=== PATIENT | female | born 1985 | race African-American/Black ===

== ENCOUNTER 2024-10-17 12:43 | Emergency (ER) | payer SELFPAY ==
--- NOTE | 2024-10-17 12:52 | EDNOTE_ITS ---
<Statement entered by Pura Patel MD - 10/17/24 16:18> As co-signing physician, I was present and available for consult prn. I concur with the plan and care as documented by the midlevel provider. ED General RME/HPI General Stated complaint: AMS Time Seen by Provider: 10/17/24 12:45 Arrival date/time: 10/17/24 12:43 RME / HPI RME / HPI narrative: 39-year-old female patient, homeless, with no past medical history, came in with EMS for witnessed seizure. Lasted for few minutes. When the EMS arrived patient was noted to be having postictal confusion. On my initial evaluation patient is denying any complaints denies any neck pain headache vomiting dizziness. Denies any abdominal pain or back pain. Patient is alert and oriented x 3. Answers question appropriately. Related Data Home Medications ?Medication ?Instructions ?Recorded ?Confirmed Unobtainable 06/29/24 06/29/24 Allergies Allergy/AdvReac Type Severity Reaction Status Date / Time Unable to Assess Allergy Verified 06/29/24 11:28 Review of Systems Review of Systems Narrative Review of Systems: Review of system reviewed and within normal limits except mentioned in HPI ED Exam Narrative Physical exam: VITAL SIGNS: Reviewed. GENERAL APPEARANCE: Alert and interactive, follows commands, no acute distress, HEAD AND FACE: Non-traumatic. ENT: PERRL, pink conjunctivitis, eyelid no trauma, Mucous membrane moist. NECK: Supple, nontender, no nuchal rigidity. CHEST: No tenderness, no crepitus, no paradoxical movement, no retractions. LUNGS: Clear, well ventilated, symmetric, no rales, no wheezing, no ronchi, no stridor, good breath sounds bilaterally. HEART: Regular rate, regular rhythm, no murmur, no gallops. ABDOMEN: Soft, positive bowel sounds, nondistended, no guarding, nontender, no rebound, no masses, RECTAL: Deferred. GENITAL: Deferred. NEUROLOGICAL: Gross motor function intact sensory function intact, Appropriate for age. MUSCULOSKELETAL: low back nontender, full range of motion. EXTREMITIES: Nontender, full range of motion. SKIN: Color pink, dry, no rash, no lacerations, no abrasions, no contusions. LYMPHATICS: Deferred. Course Quality Measures none Orders Category Date Time Status CT head/brain wo con Stat Exams 10/17/24 12:51 Ordered CBC [CBC] Stat Lab 10/17/24 12:51 Ordered CMP [Comprehensive Metabolic Panel] Stat Lab 10/17/24 12:51 Ordered Drug Screen,Urine Stat Lab 10/17/24 12:51 Ordered UA, C/S IF [Urinalysis, C/S if Indicated] Stat Lab 10/17/24 12:51 Ordered MDM Patient data External records reviewed:: None Clinical information provided by:: patient Social determinants that could affect healthcare access:: none Patient has the following chronic illnesses:: I was highly concerned with the patient's initial history/complaints and presentation, but after multiple re examinations, Normal neurological and localized swelling of the thigh ,fluctuant most likely abscess ready for I and D. I and D done after verbal consent , see procedure notes.Treatments with Bactrim DS and Keflex .Pt showed reassuring clinical improvement and stable vital signs . Stable for D/C. How is presenting disease/condition affected by chronic disease/condition?: no chronic disease Evaluation data The following diagnostics were reviewed and interpreted by me:: lab results and radiology exam(s) Lab and/or radiology exams considered but not ordered:: None Interpretation Summary: AMA. Medications Medications considered but not ordered:: none Medication administrations:: none Consultations Consultation(s) initiated? (list below): No Diagnosis Differential Diagnosis ED Complaint MDM: Seizure, homelessness, dehydration, intracranial bleed Most likely diagnosis given after review of the tests above:: Seizure Admission Indicated Admission indicated?: not indicated (AMA) Explain why admission is indicated or not indicated:: AMA Admission Request Was there a request for admission?: No Disposition Plan Disposition Plan: other (specify) (AMA) Medical Decision Making MDM Narrative MDM Narrative: 39-year-old female patient, homeless, with no past medical history, came in with EMS for witnessed seizure. Lasted for few minutes. When the EMS arrived patient was noted to be having postictal confusion. On my initial evaluation patient is denying any complaints denies any neck pain headache vomiting dizziness. Patient AMA. Pt has normal mental status and adequate capacity to make medical decisions. Oriented x 4. The patient refuses evaluation and treatment and wants to be discharged. The risks have been explained to the patient, including progression of possible worsening of current disease, worsening illness, chronic pain, permanent disability and . The benefits of evaluation and treatment have also been explained, including the availability and proximity of nurses, physicians, monitoring, diagnostic testing, and treatments. The patient was able to understand and state the risks and benefits of AMA.Patient had the opportunity to ask questions about their medical condition. He left hospital against medical advice. Es any abdominal pain or back pain. Patient is alert and oriented x 3. Answers question appropriately. Differential Diagnosis Differential Diagnosis: Seizure, homelessness, dehydration, intracranial bleed Discharge Plan Prescriptions/Referrals Prescriptions/Med Rec: No Action Unobtainable Patient/Caregiver Discharge Instructions Print Language: Belgian
--- NOTE | 2024-10-17 12:55 | PC.NURSE ---
pt states that she never wanted to come to the hospital. pt wanting to leave. pt alert and oriented. Prosper cao spoke with pt. pt still wants to leave. ama form signed at this time by pt
== END 2024-10-17 12:55 | disposition left against medical advice (07) ==
PROVIDERS: Emergency Provider Emergency Medicine
DX: R56.9 Unspecified convulsions (principal); Z59.00 Homelessness unspecified; Z53.29 Procedure and treatment not carried out because of patient's decision for other reasons
CPT/HCPCS: 80053; 80307; 81001; 85025; 99281

== ENCOUNTER 2025-01-30 16:11 | Emergency (ER) | payer MEDICAID, SELFPAY ==
--- NOTE | 2025-01-30 16:11 | PD.EDADULT ---
ED General RME/HPI General Chief complaint: Psychiatric Symptoms Stated complaint: PANCHO FAUSTIN Time Seen by Provider: 01/30/25 16:57 Arrival date/time: 01/30/25 16:11 RME / HPI RME / HPI narrative: 39 year old female who is currently homeless with no stated chronic medical history presents to the ED BIBA from the bus stop for further evaluation after fall today. Per medics report, bystanders witnessed patient seizing causing her to fall and strike face on floor. State on their arrival patient was awake, alert, although refusing to answer any questions. PD was contacted for concerns of gravely disabled/inability to care for self. While in the ED, patient is uncooperative and PD placed on a 5150 hold for gravely disabled. No further history obtainable. Related Data Home Medications ?Medication ?Instructions ?Recorded ?Confirmed Unobtainable 06/29/24 06/29/24 Allergies Allergy/AdvReac Type Severity Reaction Status Date / Time Unable to Assess Allergy Verified 06/29/24 11:28 Review of Systems Review of Systems ROS Unobtainable: unobtainable due to mental status Past Medical History Past Medical History CARDIAC: Negative Congestive Heart Failure RESPIRATORY: Negative Chronic Obstructive Pulmonary Disease (COPD) GENITOURINARY: Negative Renal Disease ENDOCRINE: Negative Diabetes Mellitus Type 1 or Diabetes Mellitus Type 2 PSYCHO/SOCIAL: Positive Schizophrenia Social History SMOKING STATUS: Never smoker ED Exam Narrative Physical exam: VITAL SIGNS: Reviewed. GENERAL APPEARANCE: Alert and interactive, follows commands, no acute distress, HEAD AND FACE: Non-traumatic. ENT: PERRL, pink conjunctivitis, eyelid no trauma, Mucous membrane moist. 2 cm gaping laceration to the lower lip NECK: Supple, nontender, no nuchal rigidity. CHEST: No tenderness, no crepitus, no paradoxical movement, no retractions. LUNGS: Clear, well ventilated, symmetric, no rales, no wheezing, no ronchi, no stridor, good breath sounds bilaterally. HEART: Regular rate, regular rhythm, no murmur, no gallops. ABDOMEN: Soft, positive bowel sounds, nondistended, no guarding, nontender, no rebound, no masses, RECTAL: Deferred. GENITAL: Deferred. NEUROLOGICAL: Gross motor function intact sensory function intact, Appropriate for age. MUSCULOSKELETAL: low back nontender, full range of motion. EXTREMITIES: Nontender, full range of motion. SKIN: Color pink, dry, no rash, no lacerations, no abrasions, no contusions. LYMPHATICS: Deferred. Course Quality Measures none Orders Category Date Time Status CBC Auto Diff Post-Transfusion Stat Lab 01/30/25 17:00 Ordered CMP [Comprehensive Metabolic Panel] Stat Lab 01/30/25 17:00 Ordered Lactate (Lactic Acid) Stat Lab 01/30/25 17:02 Ordered UA, C/S IF [Urinalysis, C/S if Indicated] Stat Lab 01/30/25 19:08 Completed LORazepam [Ativan] Med 01/30/25 17:02 Discontinued 1 mg PO X1 ONE TET,DIP/PERT AC (Adult)-Tdap [Boostrix Adult (Tdap) Med 01/30/25 17:03 Discontinued Vacc] 0.5 ml IMI .ONCE ONE Vital Signs Vital signs: Vital Signs Temperature 98.7 F 01/30/25 16:25 Pulse Rate 106 H 01/30/25 16:25 Respiratory Rate 18 01/30/25 16:25 Blood Pressure 151/90 H 01/30/25 16:25 Pulse Oximetry (%) 98 01/30/25 16:25 Oxygen Delivery Method Room Air 01/30/25 16:25 Pulse ox is 98% on room air which is adequate. Discharge Plan Prescriptions/Referrals Prescriptions/Med Rec: No Action Unobtainable Referrals: No Primary/Family,Physician [Primary Care Provider] - In 1 week Problem List Clinical Impression: History of homeless Patient/Caregiver Discharge Instructions Print Language: Indonesian MDM Patient Acuity High Acuity (complete MDM) Narrative: 39 old female who is currently homeless with no stated chronic medical history presents to the ED BIBA from the bus stop for further evaluation after fall today. Per medics report, bystanders witnessed patient falling. State on their arrival patient is awake, alert, although refusing to answer any questions. PD was contacted for concerns of gravely disabled/inability to care for self. While in the ED, patient is uncooperative and PD placed on a 5150 hold for gravely disabled. No further history obtainable Patient refusing repair of the lower lip laceration Patient on 5150 hold. Care transferred to Dr Mills, at 11 pm for final disposition Clinical Information Provided by: EMS (Provided prehospital course ) Medical Records reviewed [facility] (I reviewed ED visit on 10/17/2021 ) Meds/Rx considered, not ordered None Labs/Rad/Tests considered, not ordered None Chronic Illness/Social Conditions which may negatively complicate care or outcome(s)-explain: Homeless EKG EKG not done Labs Labs: Interpreted by me Lab(s) Interpretation(s): Patient refused lab draw Imaging Imaging interpretation: none or see narrative above Medication Administration(s) Medication Administration History Discontinued Medications Diphtheria/Tetanus/Acell Pertussis (Diphth,Pertuss(Acell),Tet Vac 0.5 Ml Syr- Adult) 0.5 ml IMi .ONCE ONE Stop: 01/30/25 17:04 Last Admin: 01/30/25 17:19 Dose: 0.5 ml Documented By: BLANKA Lorazepam (Lorazepam 0.5 Mg Tablet) 1 mg PO X1 ONE Stop: 01/30/25 17:03 Last Admin: 01/30/25 20:08 Dose: Not Given Documented By: EF Non-Admin Reason: Patient Refused
[2025-01-30 16:25] VITALS: BP 151/90; PULSE 106; RESP 18; TEMP 37.1; O2SAT 98; BMI 18.3
--- NOTE | 2025-01-30 16:38 | PC.CC ---
Patient is a 39 year-old female who presents to the hospital on a 5150-hold GDA by [facility] Department Officer Judit.
[2025-01-30 16:42] VITALS: BMI 40.3
--- NOTE | 2025-01-30 16:53 | PC.NURSE ---
PATIENT REFUSING TO COOPERATE AND REFUSES TO ANSWER QUESTIONS. STATES SHE HAS A PENIS IN HER STOMACH BUT NOT DOWN BY HER PUSSY. UNABLE TO DO A PROPER ASSESSMENT AT THIS TIME.
[2025-01-30] MEDS: DIPHTH,PERTUSS(ACELL),TET VAC 0.5 ML SYR- ADULT IMi (17:19)
[2025-01-30 20:00] LABS: Collection Type, Urine Clean Catch
--- NOTE | 2025-01-30 20:10 | PC.NURSE ---
patient refusing to answer questions
[2025-01-30 20:42] LABS: Bacteria,Urine Rare; Bilirubin,Urine Negative (Negative); Blood,Urine 1+ (Negative); Clarity,Urine Turbid (Clear/Hazy); Color,Urine Lt-Yellow (Lt Yel-Yel); Culture Indicated,Urine Not Indicated; Glucose, Urine Negative (Negative); Ketones,Urine Negative (Negative); Leukocyte Esterase,Urine Positive (Negative); Nitrite,Urine Negative (Negative); Protein,Urine Negative (Neg - Trace); RBC,Urine 2 /hpf (0-3); Specific Gravity,Urine 1.009 (1.001-1.035); Squamous Epithelial Cell,Urine 2 /hpf (0-5); Urobilinogen,Urine Negative mg/dL (0.0-1.0); WBC,Urine 3 /hpf (0-5)
--- NOTE | 2025-01-31 01:34 | PD.EDADDENDU ---
Emergency Room Addendum <Nataliya Sky - Last Filed: 01/31/25 01:36> Addendum Narrative: 2300: Care assumed from Jr Cheng NP. Past medical, surgical, social and family history reviewed. Vitals and home medications reviewed. Results and treatment plan discussed. I will assume the care of the patient at this time and will follow the patient, pending crisis evaluation. The patient was placed in ED observation care at 01/30/25 at 2300 hours. The patient was placed in ED observation care because of pending psychiatric evaluation. The patients past medical history, social history, and family history were reviewed. The plan of care will include serial examinations. Patient remained stable while under my care. 0600: Care signed out to Dr. Trejo (emergency physician). Past medical, surgical, social and family history reviewed. Vitals and home medications reviewed. Results and treatment plan discussed. They will assume the care of the patient at this time and will follow the patient, pending crisis evaluation. At this time, observation has ended. <Catie Mills MD - Last Filed: 01/31/25 05:22> Addendum Narrative: 2300: Care assumed from Jr Cheng NP. Past medical, surgical, social and family history reviewed. Vitals and home medications reviewed. Results and treatment plan discussed. I will assume the care of the patient at this time and will follow the patient, pending crisis evaluation. The patient was placed in ED observation care at 01/30/25 at 2300 hours. The patient was placed in ED observation care because of pending psychiatric evaluation. The patients past medical history, social history, and family history were reviewed. The plan of care will include serial examinations. Patient stable and able to ambulate to the bathroom. Patient remained stable while under my care. 0600: Care signed out to Dr. Trejo (emergency physician). Past medical, surgical, social and family history reviewed. Vitals and home medications reviewed. Results and treatment plan discussed. They will assume the care of the patient at this time and will follow the patient, pending crisis evaluation. At this time, observation has ended.
--- NOTE | 2025-01-31 05:16 | PC.NURSE ---
patient not wanting any vitals taken
--- NOTE | 2025-01-31 07:17 | PD.EDADDENDU ---
Emergency Room Addendum Addendum Narrative: 0600: Care assumed from Dr. Mills, the previous shift emergency physician. Past medical, surgical, social and family history reviewed. Vitals and home medications reviewed. I will assume the care of the patient at this time, pending mental health evaluation. The patient was placed in ED observation care at 0600 01/31/2025. While in ED observation the pt will have access to water, food, and personal hygiene. If the pt takes home medication(s), they will be continued in ED observation. Please refer to the emergency department record for history and examination from initial visit.?The following addendum documentation note is intended to reflect any pending information, findings, or radiology results not included in the patient?s initial chart. 0830: Patient refusing head CT 1744: Patient is medically cleared for mental health evaluation and placement. 1800: Patient signed out to Dr. Patel pending LPS facility placement.
--- NOTE | 2025-01-31 07:30 | PC.NURSE ---
Report given from shift production associate. Pt 5150 hold for gravely disabled. pt pending eval with social service this am. pt is also refusing all treatments. pt is currently in room sleeping on gurrake in no distress. meal tray offered and ordered.
--- NOTE | 2025-01-31 07:32 | XR_ITS ---
Examination: CT brain head without contrast. 2-D sagittal coronal reconstructions Date and time of exam:January 31, 2025 at 1653 hours INDICATIONS: Onset seizures today CTDI: vol (mGy):54.8 DLP: (mGycm):1160 Technique: Multiple CT axial sections of the brain have been obtained, 5 mm slice thickness. Contrast has not been administered. 2-D sagittal, coronal reconstructions have been obtained Low dose protocols were performed. One or more of the following dose reduction techniques were used; automated exposure control, adjustment of the mA and/or KV according to patient size, use of iterative reconstruction technique. Findings: No significant ventricular enlargement. Intra-axial or extra-axial hemorrhage density is not seen. No mass effect or midline shift Basal cisterns are not remarkable. Fourth ventricle is midline. Cranial vault intact. Impression: Negative for acute hemorrhage, mass effect or midline shift Chronic right mastoiditis Acute right mastoiditis Consider elective MRI brain follow-up, pre and postcontrast, seizure protocol
--- NOTE | 2025-01-31 07:38 | PC.CC ---
Patient is a 39 year-old female who presents to the hospital on a 5150-hold GDA by [place] [employer] Officer Judit. ASWNiru made face to face contact with the patient introduced self, role, and reason for visit. Patient presents as alert and oriented to self. Patient presents with perception of depersonalization; her behavior was bizarre and presented delusions. Patient stated I guess I'm space. Your disrespecting my God. Patient reports that the staff is taking her lips. ASW attempted to explore if patient has a history of mental health and patient denied. Patient was unable to continue to engage in viable assessment.
--- NOTE | 2025-01-31 08:30 | PC.NURSE ---
PATIENT REFUSED CT OF HEAD. MD QUESADA
[2025-01-31] MEDS: levETIRAcetam 250 MG TABLET 1000 MG PO (08:50)
[2025-01-31 11:05] VITALS: BP 97/63
--- NOTE | 2025-01-31 11:22 | PC.CC ---
Niru TOLEDO was notified by sewing machine repairer helper Lanise that patient is refusing CT Scan. ASW made face to face contact with patient regarding the CT scan and letting the radiology complete a picture of her head and explored if she knew what CT scan was. Patient stated, We are not in [facility].
--- NOTE | 2025-01-31 14:26 | PC.NURSE ---
Patient OOB up to BR with no difficulty.
[2025-01-31 16:26] LABS: Lactate (Lactic Acid) 1.9 mMol/L (0.4-2.0)
[2025-01-31 16:40] LABS: Basophils % (Auto) 1 % (0-2.5); Eosinophils # (Auto) 0.1 Thou/mm3 (0.0-0.5); Eosinophils % (Auto) 2 % (0-10); Hematocrit 38.2 % (36.0-46.0); Hemoglobin 12.8 g/dL (12.0-16.0); Immature Granulocytes % (Auto) 0 % (0-0); Immature Granulocytes Auto 0.01 Thou/mm3 (0.00-0.00); Lymphocytes # (Auto) 2.1 Thou/mm3 (1.0-4.8); Lymphocytes % (Auto) 36 % (10-50); Mean Corpuscular HGB Conc 33.5 g/dl (31.0-37.0); Mean Corpuscular Volume 87 fL (80-100); Monocytes # (Auto) 0.6 Thou/mm3 (0.0-0.8); Monocytes % (Auto) 10 % (0-12); Neutrophils # (Auto) 2.9 Thou/mm3 (1.8-7.7); Neutrophils % (Auto) 51 % (37-80); Nucleated Red Blood Cell % 0 /100 WBC (0); Platelet Count 292 Thou/mm3 (140-440); RDW Standard Deviation 44.1 fL (36.4-46.3); Red Blood Count 4.41 Miln/mm3 (4.00-5.20); White Blood Count 5.7 Thou/mm3 (3.6-11.0)
[2025-01-31 17:10] LABS: Alanine Aminotransferase 8 U/L (10-49); Albumin, Serum 3.9 gm/dL (3.5-5.0); Albumin/Globulin Ratio 1.3 (1.2-2.2); Alkaline Phosphatase 82 U/L (46-116); Anion Gap 11 (7-16); Aspartate Amino Transferase 13 U/L (0-34); BUN/Creatinine Ratio 15 Ratio (12-20); Bilirubin,Total 0.4 mg/dL (0.3-1.2); Blood Urea Nitrogen 12 mg/dL (9-23); Calcium (Corrected) 9.1 mg/dL (8.5-10.1); Carbon Dioxide 24.3 mMol/L (20.0-31.0); Chloride 108 mMol/L (98-107); Creatinine (Component) 0.8 mg/dL (0.6-1.3); Estimated Creatinine Clearance 120.6 mL/min (>60); Glucose 109 mg/dL (74-106); Osmolality,Calculated 285 (275-295); Potassium 3.7 mMol/L (3.4-5.1); Sodium 143 mMol/L (136-145); Total Protein 6.9 gm/dL (5.7-8.2); eGFR > 60 See Note
--- NOTE | 2025-01-31 18:00 | PC.CC ---
The patient was BIBA on a 5150-Hold by [place] [employer] on a 5150-hold for Gravely Disabled. ASW, Niru made face to face contact with the patient to complete a mental health assessment. Patient is unable to engage in a meaningful assessment as she is presenting with bizarre behavior and delusions; patient presents with perception of depersonalization. 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 Patient is disheveld and malodorous does not recall last time she showered. Patient denies having a history of mental health and denies past suicide attempts. At the time of encounter the patient is denying suicidal and homicidal ideations and visual and auditory hallucinations. Per chart review, patient has been placed on a 5150-Hold in the past. Patient is able to ambulate independently and complete own ADLs. Patient scored low-risk on [place] Screening. Patient reports she has no family for collateral information. Upon clinical consultation with SENIOR TABLEAU DEVELOPER, Janiealdo Madrigal patient's 5150-Hold will be upheld for GDA. ASW provided discharge plan to LPS facility to Dr. Trejo, audit control clerk Lanise, and bedside RN Corazon. ASW to send referral to LPS facilities.
[2025-01-31 19:52] VITALS: BP 95/60; PULSE 74; RESP 16; TEMP 36.9; O2SAT 98
--- NOTE | 2025-01-31 19:53 | PC.NURSE ---
ALAN LOPEZ CALLED TO GET REPORT ON PT
--- NOTE | 2025-01-31 20:06 | PC.NURSE ---
PT ACCEPTED TO [facility], WILL NEED SHORT CORDERO FROM SECURITY TEAM LEAD TOMORROW.
--- NOTE | 2025-01-31 22:26 | PC.NURSE ---
PT REFUSED MEDS STATES SHE DOESNT HAVE SEIZURES AND DONT WANT MEDS
--- NOTE | 2025-01-31 22:39 | PD.EDADDENDU ---
Emergency Room Addendum Addendum Narrative: 1800: Care assumed from Dr. Jann Trejo (emergency physician). Past medical, surgical, social and family history reviewed. Vitals and home medications reviewed. Results and treatment plan discussed. I will assume the care of the patient at this time and will follow the patient, pending transfer by EMS. 2242: Patient transferred by EMS.
== END 2025-01-31 22:45 ==
PROVIDERS: Nurse Practitioner Family; Emergency Provider Emergency Medicine
DX: Z04.3 Encounter for examination and observation following other accident (principal); F20.9 Schizophrenia, unspecified; Z59.00 Homelessness unspecified
CPT/HCPCS: 36415; 70450; 80053; 81001; 83605; 85025; 90471; 90715; 90839; 96127; 99285; A9270

== ENCOUNTER 2025-06-04 21:47 | Emergency (ER) | payer MEDICAID, SELFPAY ==
[2025-06-04 21:51] VITALS: PULSE 104; RESP 18; O2SAT 99; BMI 30.7
--- NOTE | 2025-06-04 22:01 | PD.EDABDPN ---
ED Abdominal Pain RME/HPI General Chief Complaint: Abdominal Pain Stated complaint: ABD PAIN AND DIARRHEA Time seen by provider: 06/04/25 21:53 Arrival date/time: 06/04/25 21:47 RME / HPI RME / HPI narrative: See [facility] for Dr. Henderson's HPI documentation. Related Data Previous Rx's ?Medication ?Instructions ?Recorded acetaminophen 300 mg-codeine 30 mg 2 tab PO Q8H PRN pain #10 tabs 06/05/25 tablet ondansetron 4 mg disintegrating 4 mg PO TID PRN nausea and 06/05/25 tablet vomiting 30 days #10 tabs Allergies Allergy/AdvReac Type Severity Reaction Status Date / Time Unable to Assess Allergy Verified 06/04/25 21:55 Review of Systems Review of Systems Systems Reviewed: All systems reviewed, normal except as documented Past Medical History Past Medical History CARDIAC: Negative Congestive Heart Failure RESPIRATORY: Negative Chronic Obstructive Pulmonary Disease (COPD) GENITOURINARY: Negative Renal Disease ENDOCRINE: Negative Diabetes Mellitus Type 1 or Diabetes Mellitus Type 2 PSYCHO/SOCIAL: Positive Schizophrenia Social History SMOKING STATUS: Current some day smoker ED Exam Narrative Physical exam: See [facility] for Dr. Henderson's physical exam documentation. Course Quality Measures none Orders Category Date Time Status CT abdomen pelvis wo con Stat Exams 06/04/25 22:04 Taken Alcohol, Blood Medical Stat Lab 06/04/25 22:24 Completed Amylase Stat Lab 06/04/25 22:24 Completed Bilirubin,Direct Stat Lab 06/04/25 22:24 Completed CBC Stat Lab 06/04/25 22:24 Completed CMP [Comprehensive Metabolic Panel] Stat Lab 06/04/25 22:24 Completed HCG,Qualitative Serum Stat Lab 06/04/25 22:24 Completed Lipase Stat Lab 06/04/25 22:24 Completed Magnesium Stat Lab 06/04/25 22:24 Completed Vital Signs Vital signs: Vital Signs Temperature 98.1 F 06/04/25 22:19 Pulse Rate 93 06/04/25 22:19 Respiratory Rate 18 06/04/25 22:19 Blood Pressure 142/81 H 06/04/25 22:19 Pulse Oximetry (%) 99 06/04/25 22:19 Oxygen Delivery Method Room Air 06/04/25 22:19 Abdominal Pain [facility] Narrative [facility] Narrative:: This section includes all my notes and documentations, including HPI, PE, and ED course. Michi Henderson MD HPI: 39yo female here with abdominal pain for the last few years. No nausea, vomiting, or diarrhea. No daily medications. Eating normally. Has trouble localizing the abdominal pain. Has trouble describing the quality and quantity of the pain. Uncertain about exacerbating factors or relieving factors. No other complaints reported. ROS: All negative except as documented in HPI. Physical Exam: General: Alert and oriented. No acute distress when remaining still. Eyes: Conjunctivae and lids clear. ENT: No nasal congestion. Neck: Supple. Heart: RRR. Lungs: No respiratory distress. Good air movement. No rhonchi, wheezing, rales. Abdomen: Soft and nontender. Normal bowel sounds. No distension. No rebound or guarding. Back: No CVA tenderness. Skin: Warm and dry. Neuro: Alert and oriented X 3. I reviewed all diagnostic test results. My review of the CT abdomen pelvis report is cholelithiasis. Blood tests are unremarkable. At this point, diagnoses include gallstones. Recommended outpatient management. Based on my best medical judgment, made decision no further evaluation or treatment indicated at this time. Patient understands and agrees to the discharge instructions customized and printed, see below. Discharge Instructions from Dr. Henderson: 1. After evaluation, your symptoms are due to gallstone(s). You need gallbladder to help digest fatty foods. 2. So to prevent future attacks, avoid all fatty and oily and greasy and buttery and dairy foods. This usually means take out and fast food restaurants. 3. Zofran for nausea/vomiting. Tylenol with codeine for severe pain. Clear liquid diet for 24 hours then advance diet slowly as tolerated. 4. See a private doctor on 06/27 for recheck and further care. Ask to review all test results and official radiology reports, to make sure you receive all necessary follow-ups and monitoring. Ask for help seeing a general surgeon to discuss elective surgery. 5. Seek immediate medical care with intolerable pain, fever, or with any concerns. Michi Henderson MD Patient data External records reviewed:: [facility] previous records (Per chart review, patient was seen here on 01/03/25 for homelessness.) Clinical information provided by:: patient Social determinants that could affect healthcare access:: none Patient has the following chronic illnesses:: none How is presenting disease/condition affected by chronic disease/condition?: no chronic disease Evaluation data The following diagnostics were reviewed and interpreted by me:: lab results and radiology exam(s) Lab and/or radiology exams considered but not ordered:: none Interpretation Summary: I reviewed all diagnostic test results. My review of the CT abdomen pelvis report is cholelithiasis. Blood tests are unremarkable. Medications / Prescriptions Medications or Prescriptions considered but not ordered:: none Medication administrations:: none Consultations Consultation(s) initiated? (list below): No Diagnosis Differential diagnosis abdominal pain: acute appendicitis, calculus of kidney, constipation, diverticulitis, endometriosis, gastroenteritis, pancreatitis, small bowel obstruction and other (Biliary colic) Most likely diagnosis given after review of the tests above:: Gallstones Admission Indicated Admission indicated?: not indicated Explain why admission is indicated or not indicated:: With no condition needing emergent intervention, there was no indication for admission. Admission Request Was there a request for admission?: No Disposition Plan Disposition Plan: Discharge Discharge Attestation Discharge Attestation: The patient and all family members were given an opportunity to ask questions and understood the discharge instructions. Discharge instructions specifically effects, indications for sooner follow up or return to the emergency department, and the expected course of current diagnosis. Patient condition: Stable Discharge Plan Plan Patient Disposition: HOME (Self Care) Prescriptions/Referrals Prescriptions/Med Rec: New ondansetron 4 mg tablet,disintegrating 4 mg PO TID PRN (Reason: nausea and vomiting) 30 Days Qty: 10 0RF acetaminophen-codeine 300-30 mg tablet 2 tab PO Q8H MDD 6 PRN (Reason: pain) Qty: 10 0RF Referrals: No Primary/Family,Physician [Primary Care Provider] - In 1 week Problem List Clinical Impression: Gallstones Patient/Caregiver Discharge Instructions Discharge Activity: activity as tolerated Education Materials: ED Gallstones with Biliary Colic Additional Instructions: Discharge Instructions from Dr. Henderson: 1. After evaluation, your symptoms are due to gallstone(s).? You need gallbladder to help digest fatty foods. 2. So to prevent future attacks, avoid all fatty and oily and greasy and buttery and dairy foods.? This usually means take out and fast food restaurants. 3. Zofran for nausea/vomiting.? Tylenol with codeine for severe pain.? Clear liquid diet for 24 hours then advance diet slowly as tolerated. 4. See a private doctor on 06/27 for recheck and further care. Ask to review all test results and official radiology reports, to make sure you receive all necessary follow-ups and monitoring. Ask for help seeing a general surgeon to discuss elective surgery. 5. Seek immediate medical care with intolerable pain, fever, or with any concerns. Print Language: [place] Stand Alone Forms: [employer] Award Info., Patient Portal Info Letter
--- NOTE | 2025-06-04 22:04 | XR_ITS ---
Examination: CT abdomen and pelvis without contrast. Coronal 3-D reconstructions. Sagittal 2-D reconstructions. Date and time of exam:June 05, 2025 0014 hrs. Indications: Onset abdominal pain and diarrhea beginning 3 days ago. CTDI: vol (mGy): 7.71. DLP: (mGycm): 402. Technique: Axial images of the abdomen have been obtained, 3 mm slice thickness Intravenous contrast material has not been administered. Low dose protocols were performed. One or more of the following dose reduction techniques were used; automated exposure control, adjustment of the mA and/or KV according to patient size, use of iterative reconstruction technique. Findings: No focal liver or splenic lesion. Cholelithiasis, contracted gallbladder. No pancreatic mass. No renal or ureteral calculi, no hydronephrosis. Normal appendix. Small fat-containing umbilical hernia. No pelvic mass. Mild urinary bladder wall thickening. Advanced degenerative disc disease L5-S1. Impression: Cholelithiasis. Cystitis pattern.
[2025-06-04 22:19] VITALS: BP 142/81; PULSE 93; RESP 18; TEMP 36.7; O2SAT 99
[2025-06-04 23:00] LABS: Basophils # (Auto) 0.1 Thou/mm3 (0.0-0.2); Basophils % (Auto) 1 % (0-2.5); Eosinophils # (Auto) 0.1 Thou/mm3 (0.0-0.5); Eosinophils % (Auto) 2 % (0-10); Hematocrit 37.3 % (36.0-46.0); Hemoglobin 11.9 g/dL (12.0-16.0); Immature Granulocytes Auto 0.00 Thou/mm3 (0.00-0.00); Lymphocytes # (Auto) 2.7 Thou/mm3 (1.0-4.8); Lymphocytes % (Auto) 51 % (10-50); Mean Corpuscular HGB Conc 31.9 g/dl (31.0-37.0); Mean Corpuscular Hemoglobin 28.3 pg (25.0-35.0); Mean Corpuscular Volume 89 fL (80-100); Monocytes # (Auto) 0.6 Thou/mm3 (0.0-0.8); Monocytes % (Auto) 11 % (0-12); Neutrophils # (Auto) 1.8 Thou/mm3 (1.8-7.7); Neutrophils % (Auto) 35 % (37-80); Nucleated Red Blood Cell # 0.00 Thou/mm3 (0.00-0.00); Nucleated Red Blood Cell % 0 /100 WBC (0); Platelet Count 312 Thou/mm3 (140-440); RDW Standard Deviation 43.8 fL (36.4-46.3); Red Blood Count 4.20 Miln/mm3 (4.00-5.20); White Blood Count 5.2 Thou/mm3 (3.6-11.0)
[2025-06-04 23:04] LABS: HCG,Qualitative Serum Negative
[2025-06-04 23:27] LABS: Alanine Aminotransferase 9 U/L (10-49); Albumin, Serum 4.5 gm/dL (3.5-5.0); Albumin/Globulin Ratio 1.6 (1.2-2.2); Alcohol, Blood Medical < 3.0 mg/dL (0-10.0); Alkaline Phosphatase 85 U/L (46-116); Amylase 56 U/L (30-118); Anion Gap 9 (7-16); Aspartate Amino Transferase 17 U/L (0-34); BUN/Creatinine Ratio 12 Ratio (12-20); Bilirubin,Direct < 0.1 mg/dL (0.0-0.3); Bilirubin,Total 0.3 mg/dL (0.3-1.2); Blood Urea Nitrogen 11 mg/dL (9-23); Calcium 10.1 mg/dL (8.3-10.6); Calcium (Corrected) 10.1 mg/dL (8.5-10.1); Carbon Dioxide 26.0 mMol/L (20.0-31.0); Chloride 104 mMol/L (98-107); Creatinine (Component) 0.9 mg/dL (0.6-1.3); Estimated Creatinine Clearance 89.8 mL/min (>60); Globulin 2.8 gm/dL (2.3-3.5); Glucose 87 mg/dL (74-106); Lipase 32 U/L (12-53); Magnesium 1.8 mg/dL (1.6-2.6); Osmolality,Calculated 275 (275-295); Potassium 3.8 mMol/L (3.4-5.1); Sodium 139 mMol/L (136-145); Total Protein 7.3 gm/dL (5.7-8.2); eGFR > 60 See Note
[2025-06-05 00:56] VITALS: BP 118/61; PULSE 89; RESP 20; TEMP 36.6; O2SAT 95
--- NOTE | 2025-06-05 02:26 | PC.NURSE ---
CALLED TO GIVE D/C PAPERS NO ANSWER X1
--- NOTE | 2025-06-05 02:44 | PC.NURSE ---
CALLED FOR D/C PAPERS X2 NO ANSWER
--- NOTE | 2025-06-05 03:23 | PC.NURSE ---
GAVE PT DISCHARGE INSTRUCTIONS BUT SHE DID NOT WANT TO SIGN EXPLAINED HE HAS RX AND PHARMACY AND [facility] RX
== END 2025-06-05 03:25 | disposition home or self-care (01) ==
PROVIDERS: Emergency Provider Emergency Medicine
DX: K80.20 Calculus of gallbladder without cholecystitis without obstruction (principal)
CPT/HCPCS: 36415; 74176; 80053; 80320; 82150; 82248; 83690; 83735; 84703; 85025; 99284; G0480